=== PATIENT | female | born 1970 | race African-American/Black ===

== ENCOUNTER 2021-07-13 09:52 | Emergency (ER) | payer SELFPAY ==
[2021-07-13] MEDS ORDERED: Ondansetron PF 4 MG/2 ML Vial ONE (11:13)
[2021-07-13 11:48] LABS: #Eosinphils 0.1 10x3/uL (0.0-0.5); #Monocytes 0.8 10x3/uL (0.0-1.1); #Neutrophils 6.6 10x3/uL (1.5-8.4); %Basophils 0.4 % (0.0-2.0); %Eosinophils 1.3 % (0.0-6.0); %Lymphocytes 21.6 % (18.0-47.0); %Monocytes 8.5 % (0.0-10.0); %Neutrophils 67.5 % (40.0-75.0); Hemoglobin 11.9 g/dL (12.0-15.5); Mean Corpuscular HGB CONC 31.1 g/dL (32.0-36.0); Mean Corpuscular Hemoglobin 27.9 pg (27.0-33.0); Mean Corpuscular Volume 89.7 fl (81.6-98.3); Mean Platelet Volume 9.3 fl (7.4-10.4); Platelet Count 561 10x3/uL (150-450); RBC Distribution Width 14.8 % (11.5-14.5); Red Blood Cell (RBC) Count 4.27 10x6/uL (3.90-5.03); White Blood Cell (WBC) Count 9.8 10x3/uL (3.5-10.5)
[2021-07-13 12:05] LABS: ALT (SGPT) 15 U/L (8-55); AST (SGOT) 15 U/L (5-34); Alkaline Phosphatase 127 U/L (40-110); Anion Gap 10 mmol/L (10-20); BUN (Urea Nitrogen) 17 mg/dL (9.8-20.1); Bilirubin, Total 0.4 mg/dL (0.2-1.2); Calc. Creatinine Clearance 0 mL/min (70-130); Calcium 8.4 mg/dL (7.8-10.44); Carbon Dioxide 26 mmol/L (22-29); Chloride 105 mmol/L (98-107); Globulin 3.8 g/dL (2.4-3.5); Glucose 97 mg/dL (70-105); Lipase 6 U/L (8-78); Potassium 3.7 mmol/L (3.5-5.1); Protein, Total 6.8 g/dL (6.0-8.3); Sodium 137 mmol/L (136-145)
== END 2021-07-13 12:35 | disposition home or self-care (01) ==
LOC: CSHERS 09:52
DX: K52.9 Noninfective gastroenteritis and colitis, unspecified (principal); K50.90 Crohn's disease, unspecified, without complications
CPT/HCPCS: 80053; 83690; 85025; 96374; J2405

== ENCOUNTER 2022-08-21 08:59 | Inpatient (IN) | payer OTHER, SELFPAY ==
[2022-08-21] MEDS ORDERED: Acetaminophen 650 MG Suppository PR PRN (10:50)
[2022-08-21] MEDS ORDERED: Ondansetron PF 4 MG/2 ML Vial IVP PRN (10:50)
[2022-08-21] MEDS ORDERED: Acetaminophen 325 MG TAB PO PRN (10:50)
[2022-08-21] MEDS ORDERED: Ondansetron ODT 4 MG TAB PO PRN (10:50)
[2022-08-21] MEDS ORDERED: Electrolyte Replacement Protocol 1 EACH FS PRN (10:54)
[2022-08-21 11:01] VITALS: BMI 22.1
[2022-08-21] MEDS ORDERED: FLU VACC QS2022-23(6MOS UP)/PF 60 MCG/0.5 ML SYRINGE IM ONE (11:15)
[2022-08-21 11:55] LABS: ALT (SGPT) 17 U/L (8-55); AST (SGOT) 22 U/L (5-34); Albumin 2.1 g/dL (3.5-5.0); Alkaline Phosphatase 105 U/L (40-110); Anion Gap 12 mmol/L (10-20); BUN (Urea Nitrogen) 10 mg/dL (9.8-20.1); Bilirubin, Total 0.3 mg/dL (0.2-1.2); Calc. Creatinine Clearance 48 mL/min (70-130); Carbon Dioxide 18 mmol/L (22-29); Chloride 114 mmol/L (98-107); Estimated GFR 50; Globulin 3.6 g/dL (2.4-3.5); Glucose 106 mg/dL (70-105); Potassium 2.9 mmol/L (3.5-5.1); Protein, Total 5.7 g/dL (6.0-8.3); Sodium 141 mmol/L (136-145)
[2022-08-21 12:02] LABS: Calcium 5.4 mg/dL (7.8-10.44)
[2022-08-21] MEDS ORDERED: Potassium Bicarbonate/Cit Ac 20 MEQ TAB PO SCH (13:00)
[2022-08-21] MEDS: ADMIXTURE FEE IV SCH (13:34)
[2022-08-21] MEDS: POTASSIUM CHLORIDE IV SCH (13:34)
[2022-08-21] MEDS: SODIUM CHLORIDE IV SCH (13:34)
[2022-08-21 17:16] LABS: Potassium 2.9 mmol/L (3.5-5.1)
[2022-08-21] MEDS: Potassium Chloride 20 MEQ TAB PO SCH ×2 (18:29→21:38)
[2022-08-22] MEDS: POTASSIUM CHLORIDE IV SCH ×3 (00:24→18:53)
[2022-08-22] MEDS: SODIUM CHLORIDE IV SCH ×3 (00:24→18:53)
[2022-08-22] MEDS: ADMIXTURE FEE IV SCH ×3 (00:24→18:53)
[2022-08-22 06:08] LABS: #Eosinphils 0.1 10x3/uL (0.0-0.5); #Monocytes 0.4 10x3/uL (0.0-1.1); #Neutrophils 2.6 10x3/uL (1.5-8.4); %Basophils 0.4 % (0.0-2.0); %Lymphocytes 36.1 % (18.0-47.0); %Monocytes 8.4 % (0.0-10.0); %Neutrophils 52.3 % (40.0-75.0); Hemoglobin 6.5 g/dL (12.0-15.5); Mean Corpuscular HGB CONC 34.2 g/dL (32.0-36.0); Mean Corpuscular Hemoglobin 32.7 pg (27.0-33.0); Mean Corpuscular Volume 95.5 fl (81.6-98.3); Mean Platelet Volume 9.6 fl (7.4-10.4); Platelet Count 438 10x3/uL (150-450); RBC Distribution Width 18.7 % (11.5-14.5); Red Blood Cell (RBC) Count 1.99 10x6/uL (3.90-5.03)
[2022-08-22 06:41] LABS: Anion Gap 10 mmol/L (10-20); BUN (Urea Nitrogen) 9 mg/dL (9.8-20.1); Calc. Creatinine Clearance 60 mL/min (70-130); Carbon Dioxide 19 mmol/L (22-29); Chloride 118 mmol/L (98-107); Estimated GFR 64; Glucose 83 mg/dL (70-105); Potassium 3.6 mmol/L (3.5-5.1); Sodium 143 mmol/L (136-145)
[2022-08-22 06:49] LABS: Calcium 5.1 mg/dL (7.8-10.44)
[2022-08-22] MEDS ORDERED: Calcium Gluconate 4.6 MEQ in Sodium Chloride 0.9% 100 ML IVPB SCH (08:00)
[2022-08-22] MEDS ORDERED: Calcium Citrate 950 MG (200MG) TAB PO SCH (09:00)
[2022-08-22] MEDS: Folic Acid 1 MG TAB PO SCH (09:40)
[2022-08-22] MEDS: Calcium Carbonate 600 MG + Vit D TAB PO SCH ×2 (09:40→16:43)
[2022-08-22] MEDS: Multivit, Therapeutic 1 TAB PO SCH (09:40)
[2022-08-22] MEDS: Magnesium Chloride 64 MG TAB PO SCH ×2 (09:40→20:42)
[2022-08-22] MEDS: Potassium Chloride 20 MEQ TAB PO SCH ×2 (09:40→16:43)
[2022-08-22 10:21] LABS: Iron 91 ug/dL (50-170); Iron Binding Capacity, Total 93 mcg/dL (265-497)
[2022-08-22 10:32] LABS: Ferritin 224.26 ng/mL (10-291)
[2022-08-22 15:23] LABS: Vitamin D, 25 Hydroxy 3.9 ng/ml (> 30.0)
[2022-08-22 15:29] LABS: Vitamin B12 Less than 109 pg/mL (211-911)
[2022-08-23] MEDS: POTASSIUM CHLORIDE IV SCH (06:26)
[2022-08-23] MEDS: SODIUM CHLORIDE IV SCH (06:26)
[2022-08-23] MEDS: ADMIXTURE FEE IV SCH (06:26)
[2022-08-23 06:27] LABS: #Eosinphils 0.1 10x3/uL (0.0-0.5); #Monocytes 0.5 10x3/uL (0.0-1.1); #Neutrophils 4.8 10x3/uL (1.5-8.4); %Basophils 0.2 % (0.0-2.0); %Eosinophils 1.1 % (0.0-6.0); %Lymphocytes 33.1 % (18.0-47.0); %Monocytes 6.2 % (0.0-10.0); %Neutrophils 58.4 % (40.0-75.0); Mean Corpuscular Hemoglobin 31.3 pg (27.0-33.0); Mean Platelet Volume 9.4 fl (7.4-10.4); Platelet Count 429 10x3/uL (150-450); RBC Distribution Width 22.3 % (11.5-14.5); Red Blood Cell (RBC) Count 2.88 10x6/uL (3.90-5.03); White Blood Cell (WBC) Count 8.3 10x3/uL (3.5-10.5)
[2022-08-23 06:43] LABS: Anion Gap 11 mmol/L (10-20); BUN (Urea Nitrogen) 11 mg/dL (9.8-20.1); Calc. Creatinine Clearance 72 mL/min (70-130); Carbon Dioxide 15 mmol/L (22-29); Chloride 118 mmol/L (98-107); Estimated GFR 81; Glucose 77 mg/dL (70-105); Potassium 3.8 mmol/L (3.5-5.1); Sodium 140 mmol/L (136-145)
[2022-08-23 06:47] LABS: Anisocytosis SLIGHT = 6-15 cells (100X) (0-5/hpf); Platelet Morphology Comment Appears Adequate
[2022-08-23 06:49] LABS: Calcium 5.7 mg/dL (7.8-10.44)
[2022-08-23] MEDS ORDERED: Calcium Gluconate 4.6 MEQ in Sodium Chloride 0.9% 100 ML IVPB ONE (07:37)
[2022-08-23] MEDS: Multivit, Therapeutic 1 TAB PO SCH (08:32)
[2022-08-23] MEDS: Potassium Chloride 20 MEQ TAB PO SCH ×2 (08:32→16:29)
[2022-08-23] MEDS: Calcium Carbonate 600 MG + Vit D TAB PO SCH ×2 (08:32→16:29)
[2022-08-23] MEDS: Folic Acid 1 MG TAB PO SCH (08:32)
[2022-08-23] MEDS: Magnesium Chloride 64 MG TAB PO SCH ×2 (08:34→21:04)
[2022-08-23] MEDS ORDERED: Cyanocobalamin 1000 MCG/ML VIAL IM SCH ×2 (09:00)
[2022-08-23] MEDS ORDERED: Ergocalciferol 1.25 MG(50,000 UNITS) CAP PO SCH (09:00)
[2022-08-23] MEDS ORDERED: GoLYTELY 4,000 ml Bottle PO SCH (19:00)
[2022-08-24 04:31] LABS: #Eosinphils 0.2 10x3/uL (0.0-0.5); #Monocytes 0.7 10x3/uL (0.0-1.1); #Neutrophils 4.6 10x3/uL (1.5-8.4); %Basophils 0.4 % (0.0-2.0); %Eosinophils 1.8 % (0.0-6.0); %Lymphocytes 31.9 % (18.0-47.0); %Monocytes 8.5 % (0.0-10.0); %Neutrophils 56.5 % (40.0-75.0); Mean Corpuscular HGB CONC 33.9 g/dL (32.0-36.0); Mean Corpuscular Hemoglobin 31.1 pg (27.0-33.0); Mean Corpuscular Volume 91.8 fl (81.6-98.3); Mean Platelet Volume 9.8 fl (7.4-10.4); Platelet Count 384 10x3/uL (150-450); RBC Distribution Width 22.4 % (11.5-14.5); Red Blood Cell (RBC) Count 2.57 10x6/uL (3.90-5.03); White Blood Cell (WBC) Count 8.1 10x3/uL (3.5-10.5)
[2022-08-24 04:46] LABS: Anion Gap 8 mmol/L (10-20); BUN (Urea Nitrogen) 10 mg/dL (9.8-20.1); Calc. Creatinine Clearance 71 mL/min (70-130); Carbon Dioxide 17 mmol/L (22-29); Chloride 116 mmol/L (98-107); Estimated GFR 80; Glucose 83 mg/dL (70-105); Potassium 3.8 mmol/L (3.5-5.1); Sodium 137 mmol/L (136-145)
[2022-08-24 04:51] LABS: Calcium 5.7 mg/dL (7.8-10.44)
[2022-08-24 04:58] LABS: Anisocytosis SLIGHT = 6-15 cells (100X) (0-5/hpf); Hypochromia SLIGHT = 6-15 cells (100X) (0-5/hpf)
[2022-08-24 04:59] LABS: Platelet Morphology Comment Appears Adequate
[2022-08-24] MEDS: Potassium Chloride 20 MEQ TAB PO SCH ×2 (08:24→16:12)
[2022-08-24] MEDS: Multivit, Therapeutic 1 TAB PO SCH (08:25)
[2022-08-24] MEDS: Folic Acid 1 MG TAB PO SCH (08:25)
[2022-08-24] MEDS: Calcium Carbonate 600 MG + Vit D TAB PO SCH ×2 (08:25→16:11)
[2022-08-24] MEDS: Magnesium Chloride 64 MG TAB PO SCH (08:26)
[2022-08-24] MEDS ORDERED: Calcium Carbonate 600 MG + Vit D TAB PO SCH (09:30)
[2022-08-24] MEDS ORDERED: Calcium Gluconate 4.6 MEQ in Sodium Chloride 0.9% 100 ML IVPB SCH (09:30)
[2022-08-24] MEDS: Albumin 25% 25 GM/100 ML BOT IVPB SCH ×2 (11:21→17:51)
[2022-08-25] MEDS: Albumin 25% 25 GM/100 ML BOT IVPB SCH ×2 (00:09→06:19)
[2022-08-25 04:53] LABS: #Eosinphils 0.1 10x3/uL (0.0-0.5); #Monocytes 0.6 10x3/uL (0.0-1.1); #Neutrophils 3.2 10x3/uL (1.5-8.4); %Basophils 0.5 % (0.0-2.0); %Lymphocytes 35.9 % (18.0-47.0); %Monocytes 9.3 % (0.0-10.0); %Neutrophils 51.6 % (40.0-75.0); Hemoglobin 7.3 g/dL (12.0-15.5); Mean Corpuscular HGB CONC 33.2 g/dL (32.0-36.0); Mean Corpuscular Hemoglobin 30.7 pg (27.0-33.0); Mean Corpuscular Volume 92.4 fl (81.6-98.3); Mean Platelet Volume 9.2 fl (7.4-10.4); Platelet Count 355 10x3/uL (150-450); RBC Distribution Width 22.4 % (11.5-14.5); Red Blood Cell (RBC) Count 2.38 10x6/uL (3.90-5.03); White Blood Cell (WBC) Count 6.2 10x3/uL (3.5-10.5)
[2022-08-25 05:15] LABS: Anion Gap 10 mmol/L (10-20); BUN (Urea Nitrogen) 6 mg/dL (9.8-20.1); Calc. Creatinine Clearance 75 mL/min (70-130); Calcium 6.6 mg/dL (7.8-10.44); Carbon Dioxide 16 mmol/L (22-29); Chloride 117 mmol/L (98-107); Estimated GFR 84; Glucose 79 mg/dL (70-105); Potassium 3.8 mmol/L (3.5-5.1); Sodium 139 mmol/L (136-145)
[2022-08-25 05:17] LABS: Anisocytosis SLIGHT = 6-15 cells (100X) (0-5/hpf); Platelet Morphology Comment Appears Adequate
[2022-08-25] MEDS ORDERED: PROPOFOL 20 ML ONE (08:44)
[2022-08-25] MEDS: Ergocalciferol 1.25 MG(50,000 UNITS) CAP PO SCH ×2 (08:48→10:05)
[2022-08-25] MEDS: Potassium Chloride 20 MEQ TAB PO SCH ×3 (08:48→17:16)
[2022-08-25] MEDS: Multivit, Therapeutic 1 TAB PO SCH ×2 (08:48→10:04)
[2022-08-25] MEDS: Calcium Carbonate 600 MG + Vit D TAB PO SCH ×3 (08:48→17:16)
[2022-08-25] MEDS: Folic Acid 1 MG TAB PO SCH ×2 (08:48→10:04)
[2022-08-25 16:43] LABS: Campy jejuni + coli by PCR Negative (Negative); STEC Shiga Toxin 1+2 Negative (Negative); Salmonella spp. by PCR Negative (Negative); Shigella spp + EIEC by PCR Negative (Negative)
[2022-08-26 05:14] LABS: #Eosinphils 0.1 10x3/uL (0.0-0.5); #Neutrophils 7.1 10x3/uL (1.5-8.4); %Basophils 0.4 % (0.0-2.0); %Eosinophils 0.9 % (0.0-6.0); %Lymphocytes 18.6 % (18.0-47.0); %Monocytes 9.4 % (0.0-10.0); %Neutrophils 69.8 % (40.0-75.0); Hemoglobin 8.9 g/dL (12.0-15.5); Mean Corpuscular Hemoglobin 30.5 pg (27.0-33.0); Mean Corpuscular Volume 89.7 fl (81.6-98.3); Mean Platelet Volume 9.5 fl (7.4-10.4); Platelet Count 341 10x3/uL (150-450); Red Blood Cell (RBC) Count 2.92 10x6/uL (3.90-5.03); White Blood Cell (WBC) Count 10.2 10x3/uL (3.5-10.5)
[2022-08-26 05:27] LABS: Anion Gap 10 mmol/L (10-20); BUN (Urea Nitrogen) 8 mg/dL (9.8-20.1); Calc. Creatinine Clearance 71 mL/min (70-130); Calcium 7.1 mg/dL (7.8-10.44); Carbon Dioxide 18 mmol/L (22-29); Chloride 114 mmol/L (98-107); Estimated GFR 80; Glucose 103 mg/dL (70-105); Potassium 3.8 mmol/L (3.5-5.1); Sodium 138 mmol/L (136-145)
[2022-08-26 06:41] LABS: Hypochromia SLIGHT = 6-15 cells (100X) (0-5/hpf); Macrocytosis MODERATE=16-30 cells (100X) (0-5/hpf); Microcytosis SLIGHT = 6-15 cells (100X) (0-5/hpf); Ovalocytes SLIGHT = 2-5 cells (100X) (0-1/hpf); Polychromasia SLIGHT = 2-3 cells (100X) (0-2/hpf); Schistocytes SLIGHT = 2-5 cells (100X) (0-1/hpf)
[2022-08-26 06:42] LABS: Anisocytosis SLIGHT = 6-15 cells (100X) (0-5/hpf); Platelet Morphology Comment Appears Adequate
[2022-08-26] MEDS: Calcium Carbonate 600 MG + Vit D TAB PO SCH ×2 (10:39→16:18)
[2022-08-26] MEDS: Folic Acid 1 MG TAB PO SCH (10:39)
[2022-08-26] MEDS: Potassium Chloride 20 MEQ TAB PO SCH ×2 (10:39→16:18)
[2022-08-26] MEDS: Multivit, Therapeutic 1 TAB PO SCH (10:39)
[2022-08-26] MEDS: Ergocalciferol 1.25 MG(50,000 UNITS) CAP PO SCH (10:43)
[2022-08-26] MEDS ORDERED: Iopamidol 370 76% 100 ML VIAL ONE (10:56)
[2022-08-27 07:29] VITALS: BP 106/63; TEMP 98.8
[2022-08-27] MEDS: Potassium Chloride 20 MEQ TAB PO SCH (08:58)
[2022-08-27] MEDS: Folic Acid 1 MG TAB PO SCH (08:58)
[2022-08-27] MEDS: Calcium Carbonate 600 MG + Vit D TAB PO SCH (08:59)
[2022-08-27] MEDS: Multivit, Therapeutic 1 TAB PO SCH (08:59)
[2022-08-27] MEDS: Ergocalciferol 1.25 MG(50,000 UNITS) CAP PO SCH (08:59)
[2022-08-27] MEDS ORDERED: methylPREDNISolone Sod Succ 40 MG VIAL IVP SCH (09:00)
== END 2022-08-27 12:04 | disposition home or self-care (01) | DRG 386 ==
LOC: CSHERS 08:59 → CSHTELE 09:16 → INTOOBSV 10:50 → OBSVTOIN 10:50
PROVIDERS: ADMIT Internal Medicine; ATTEND Internal Medicine
PROC: 30233N1 Transfusion of Nonautologous Red Blood Cells into Peripheral Vein, Percutaneous Approach (ICD-10-PCS; 2022-08-22)
PROC: 0DB98ZX Excision of Duodenum, Via Natural or Artificial Opening Endoscopic, Diagnostic (ICD-10-PCS; principal; 2022-08-25)
PROC: 0DBH8ZX Excision of Cecum, Via Natural or Artificial Opening Endoscopic, Diagnostic (ICD-10-PCS; 2022-08-25)
PROC: 0DBF8ZX Excision of Right Large Intestine, Via Natural or Artificial Opening Endoscopic, Diagnostic (ICD-10-PCS; 2022-08-25)
PROC: 0DBG8ZX Excision of Left Large Intestine, Via Natural or Artificial Opening Endoscopic, Diagnostic (ICD-10-PCS; 2022-08-25)
DX: K50.90 Crohn's disease, unspecified, without complications (principal); E44.0 Moderate protein-calorie malnutrition; E87.20 Acidosis, unspecified; K91.89 Other postprocedural complications and disorders of digestive system; N17.9 Acute kidney failure, unspecified; K63.3 Ulcer of intestine; E83.51 Hypocalcemia; D64.9 Anemia, unspecified; F32.A Depression, unspecified; D51.9 Vitamin B12 deficiency anemia, unspecified; K52.9 Noninfective gastroenteritis and colitis, unspecified; R63.4 Abnormal weight loss; K44.9 Diaphragmatic hernia without obstruction or gangrene; K29.80 Duodenitis without bleeding; K21.00 Gastro-esophageal reflux disease with esophagitis, without bleeding; K76.0 Fatty (change of) liver, not elsewhere classified; E87.6 Hypokalemia; Z68.22 Body mass index [BMI] 22.0-22.9, adult; Z90.49 Acquired absence of other specified parts of digestive tract
CPT/HCPCS: 36415; 36430; 74177; 80048; 82306; 82330; 82533; 82607; 82652; 82728; 83540; 83550; 83630; 83735; 83970; 84443; 85025; 86850; 86900; 86901; 87324; 87449; 87505; 88305; G0378; J0610; J2704; J2920; J3420; J3480; J3490; J7050; P9016; P9047; Q9967